=== PATIENT | male | born 1965 | race Caucasian/White ===

== ENCOUNTER 2020-05-09 10:38 | Outpatient (REF) | payer OTHER, SELFPAY | END 2020-05-09 10:39 | disposition home or self-care (01) | LOC: HO.LAB 10:38 | PROVIDERS: PCP Psychiatry & Neurology Psychiatry; Visit Provider Internal Medicine | DX: Z20.822 Contact with and (suspected) exposure to COVID-19 (principal) | CPT/HCPCS: 36415; C9803; U0003; U0005 ==

== ENCOUNTER 2020-05-15 11:59 | Emergency (ER) | payer OTHER, SELFPAY ==
--- NOTE | ~2020-05-15 | XR_ITS ---
EXAMINATION: XR CHEST CLINICAL INFORMATION: Cough COMPARISON: Chest radiographs 11/19/2017, 02/15/2016 TECHNIQUE: AP view of the chest was obtained. FINDINGS: Radiograph is underpenetrated. There is subtle patchy opacities in the bibasilar region, greater on right. Increased attenuation overlying the mid zone is likely related to film technique and overlying soft tissues. There is no confluent lobar segmental airspace consolidation. The cardiac and hilar and mediastinal contours and visualized bony structures are unremarkable. XR/XR chest 1V IMPRESSION: Suspect bibasilar airspace opacities, greater on right. Patient study limitations.
[2020-05-15 12:12] VITALS: BP 108/67; PULSE 84; RESP 18; TEMP 37; O2SAT 96; BMI 48.4
--- NOTE | 2020-05-15 12:45 | ED_ITS ---
HPI - General Adult General Chief complaint: General Medical <AMARA Snow - Last Filed: 05/15/20 14:33> Stated complaint: COUGH <AMARA Snow - Last Filed: 05/15/20 14:33> Time Seen by Provider: 05/15/20 12:17 <AMARA Snow Last Filed: 05/15/20 14:33> Source: patient and family <AMARA Snow - Last Filed: 05/15/20 14:33> Mode of arrival: ambulatory <AMARA Snow - Last Filed: 05/15/20 14:33> Limitations: no limitations <AMARA Snow - Last Filed: 05/15/20 14:33> History of Present Illness HPI narrative: 54 y/o male who was diagnosed with COVID-19 3 days ago presents with worsening cough and body aches. He states he and his have had worsening symptoms all week. He has been using his inhaler with good effect. The coughing is keeping him up at night. It is non-productive. He has no fevers or chills. He has been taking Tylenol for his body aches with little effect. No chest pain, no difficulty breathing or SOB. <AMARA Snow - Last Filed: 05/15/20 14:33> MD complaint: cough, body aches <AMARA Snow - Last Filed: 05/15/20 14:33> Onset (ago): day(s) (3) <AMARA Snow - Last Filed: 05/15/20 14:33> Location: head and chest <AMARA Snow - Last Filed: 05/15/20 14:33> Radiation: non-radiation <AMARA Snow Last Filed: 05/15/20 14:33> Severity: moderate <AMARA Snow Last Filed: 05/15/20 14:33> Quality: aching <AMARA Snow Last Filed: 05/15/20 14:33> Pain Consistency: constant <AMARA Snow Last Filed: 05/15/20 14:33> Relieving factors: medication <AMARA Snow - Last Filed: 05/15/20 14:33> Exacerbating factors: movement <AMARA Snow Last Filed: 05/15/20 14:33> Associated symptoms: cough, fever/chills, headaches, loss of appetite and weakness <AMARA Snow Last Filed: 05/15/20 14:33> Treatments prior to arrival: none <AMARA Snow Last Filed: 05/15/20 14:33> Related Data Home medications: Previous Rx's Medication Instructions Recorded albuterol sulfate 1 inh INHALATION QID PRN #6.7 g 05/15/20 azithromycin [Zithromax Z-Lopez] See Rx Instructions .ROUTE 05/15/20 .COMPLEX #6 tab hydrocodone-homatropine [Hycodan] 5 ml PO Q6H PRN #60 ml 05/15/20 hydrocodone-homatropine [Hycodan] 5 ml PO Q6H PRN #60 ml 05/15/20 prednisone 40 mg PO DAILY #10 tab 05/15/20 <AMARA Snow Last Filed: 05/15/20 14:33> Allergies/adverse reactions: Allergies Allergy/AdvReac Type Severity Reaction Status Date / Time No Known Allergies Allergy Unverified 12/07/19 16:07 <AMARA Snow Last Filed: 05/15/20 14:33> Review of Systems Review of Systems: Constitutional: + Fever, + Chills ENT/Mouth: No sore throat, No Rhinorrhea, No Swallowing Difficulty Cardiovascular: No Chest Pain, No SOB, No Orthopnea, No Edema Respiratory: + Cough, No Sputum, No Wheezing, No dyspnea Gastrointestinal: No Nausea, No Vomiting, No Diarrhea, No abdominal Pain Genitourinary: No Dysuria, No Urinary Frequency, No Hematuria Musculoskeletal: No joint pain, + Myalgias Skin: No Skin Lesions, No rash Neuro: No Dizziness, + Headache Heme/Lymph: No Bruising, No Lymphadenopathy <AMARA Snow Last Filed: 05/15/20 14:33> [facility] Past Medical History Attestation statement: The following information was validated with the patient. <AMARA Snow Last Filed: 05/15/20 14:33> Medical History: Medical History (Updated 05/15/20 @ 12:48 by AMARA Snow) Asthma <AMARA Snow - Last Filed: 05/15/20 14:33> Social History Social History: Social History Alcohol intake: never <AMARA Snow - Last Filed: 05/15/20 14:33> Physical Exam Vital Signs: Vital Signs: Last Vital Signs Temp 98.6 F 05/15/20 12:12 Pulse 84 05/15/20 12:12 Resp 18 05/15/20 12:12 BP 108/67 05/15/20 12:12 Pulse Ox 96 05/15/20 12:12 Body Mass Index 48.4 Appearance: Alert. Oriented X3. No acute distress. Eyes: Pupils equal, round and reactive to light. ENT: Pharynx normal. Neck: Normal inspection. Neck supple. CVS: Normal heart rate and rhythm. Pulses normal. Respiratory: No respiratory distress. Breath sounds normal. Abdomen: Obese, Soft and nontender. +BS x4 Skin: Skin warm and dry. Normal skin color. Normal skin turgor. No rashes. Extremities: No lower extremity edema. Negative Rajesh's sign. Neuro: Oriented X 3. Ambulates with steady gait. <AMARA Snow - Last Filed: 05/15/20 14:33> Vital Signs: Last Vital Signs Temp 98.6 F 05/15/20 12:12 Pulse 84 05/15/20 12:12 Resp 18 05/15/20 12:12 BP 108/67 05/15/20 12:12 Pulse Ox 96 05/15/20 12:12 Body Mass Index 48.4 <Rai Eckert MD - Last Filed: 06/04/20 08:31> Course Course Course Narrative: 54 y/o male presenting with worsening cough and body aches in the setting of known COVID-19. No hypoxia or increased WOB. No SOB or chest pain. His cough makes it hard for him to catch his breath at times. Doubt PE or PNA. He appears well. Will get CXR. <AMARA Snow - Last Filed: 05/15/20 14:33> I have reviewed the chart <Rai Eckert MD - Last Filed: 06/04/20 08:31> Reevaluation(s) Reevaluation #1: CXR with bibasilar infiltrates. He was ambulated on room air and his SPO2 remained 94-95% without SOB or difficultly breathing. Will treat with Z-pack, prednisone, albuterol inhaler and anti-tissive. He was counseled extensively on if symptoms were to worsen he needs to come back to the ER right away. <AMARA Snow - Last Filed: 05/15/20 14:33> Critical Care Time Critical Care Time Critical Care Time: No <AMARA Snow - Last Filed: 05/15/20 14:33> Discharge Plan Discharge Clinical Impression: COVID-19 <AMARA Snow - Last Filed: 05/15/20 14:33> Patient Disposition: Home, Self-Care <AMARA Snow - Last Filed: 05/15/20 14:33> Instructions: COVID-19 (Coronavirus Disease 2019) (ED) <AMARA Snow - Last Filed: 05/15/20 14:33> Additional Instructions: You were found to be COVID-19 POSITIVE today. Your chest x-ray showed some abnormalities due to COVID. Your oxygen levels were normal. Rest. Drink plenty of fluids. Do not go out in public for the next 10 days. Take over the counter cold/flu medications as needed for your symptoms. Take Tylenol and/or Motrin as needed for fevers and body aches. Follow up with your doctor this week. If you shortness of breath worsens, if you develop difficulty breathing or any other concerning symptom come back to the ER for further evaluation. <AMARA Snow - Last Filed: 05/15/20 14:33> Prescriptions: New albuterol sulfate 90 mcg/actuation HFA aerosol inhaler 1 inh inhalation QID PRN (Reason: shortness of breath or wheezing) Qty: 6.7 RF: 0 prednisone 20 mg tablet 40 mg PO DAILY Qty: 10 RF: 0 hydrocodone-homatropine [Hycodan] 5-1.5 mg/5 mL (5 mL) syrup 5 ml PO Q6H PRN (Reason: cough) Qty: 60 RF: 0 azithromycin [Zithromax Z-Lopez] 250 mg tablet See Rx Instructions .ROUTE .COMPLEX Qty: 6 RF: 0 hydrocodone-homatropine [Hycodan] 5-1.5 mg/5 mL (5 mL) syrup 5 ml PO Q6H PRN (Reason: cough) Qty: 60 RF: 0 <AMARA Snow - Last Filed: 05/15/20 14:33> Interventions: ED Discharge Assessment Last Done: 05/15/20 13:26 <AMARA Snow - Last Filed: 05/15/20 14:33> Discharge Date/Time: 05/15/20 13:30 <AMARA Snow - Last Filed: 05/15/20 14:33>
== END 2020-05-15 13:30 | disposition home or self-care (01) ==
PROVIDERS: Emergency Provider Emergency Medicine
DX: U07.1 COVID-19 (principal); R05 Cough; Z79.899 Other long term (current) drug therapy
CPT/HCPCS: 71045; 99284

== ENCOUNTER 2020-05-21 09:56 | Outpatient (REF) | payer OTHER, SELFPAY | END 2020-05-21 09:57 | disposition home or self-care (01) | LOC: HO.LAB 09:56 | PROVIDERS: Visit Provider Internal Medicine | DX: Z20.822 Contact with and (suspected) exposure to COVID-19 (principal) | CPT/HCPCS: 36415; C9803; U0003; U0005 ==

== ENCOUNTER 2023-04-11 21:54 | Emergency (ER) | payer OTHER, SELFPAY ==
[2023-04-11 22:05] VITALS: BP 144/82; PULSE 96; RESP 18; TEMP 36.8; O2SAT 97; BMI 50.7
[2023-04-11 22:36] LABS: IDNOW Serial# 58CA691E; Strep A Nucleic Acid Negative (Negative)
[2023-04-11 22:42] LABS: COVID-19 Test Negative (Negative); IDNOW Serial# 08D9AD1C; IDNOW Serial# 152EDE1D; Influenza A Negative (Negative); Influenza B2 Negative (Negative)
--- NOTE | 2023-04-11 23:55 | ED_ITS ---
HPI - URI/Sore Throat General Chief Complaint: Upper Respiratory Symptoms Stated Complaint: Chest pain, congestion Time Seen by Provider: 04/11/23 23:30 Source: patient Mode of arrival: ambulatory History of Present Illness HPI Narrative: 57-year-old male presents with 2 weeks of coughing and chest pain associated with the coughing episodes and also has underlying asthma and states that he has had persistent shortness of breath but otherwise denies any fevers or chills and denies any non cough associated chest pain or any problems with palpitations, patient does have a follow-up appointment with his primary care doctor. Related Data Previous Rx's Medication Instructions Recorded albuterol sulfate 90 mcg/actuation 1 inh inhalation QID PRN shortness 05/15/20 aerosol inhaler of breath or wheezing #6.7 grams azithromycin 250 mg tablet See Rx Instructions PO .COMPLEX #6 05/15/20 (Zithromax Z-Lopez) tabs hydrocodone-homatropine 5 mg-1.5 5 ml PO Q6H PRN cough #60 mL 05/15/20 mg/5 mL (5 mL) oral syrup (Hycodan) hydrocodone-homatropine 5 mg-1.5 5 ml PO Q6H PRN cough #60 mL 05/15/20 mg/5 mL (5 mL) oral syrup (Hycodan) prednisone 20 mg tablet 40 mg (2 x 20 mg) PO DAILY #10 tabs 05/15/20 benzonatate 200 mg capsule 200 mg PO TID PRN cough #14 caps 04/12/23 prednisone 50 mg tablet 50 mg PO DAILY 4 days #4 tabs 04/12/23 Allergies Allergy/AdvReac Type Severity Reaction Status Date / Time No Known Allergies Allergy Unverified 12/07/19 16:07 Review of Systems Review of Systems: Pertinent positives and negatives as stated in HPI [facility] Past Medical History Source: nursing notes reviewed Onset Date is defined in the Problem List Problems that require an onset date and time if occurred within 24 hrs of arrival to the ED Aortic Dissection and Rupture; Neurologic impairment; Cardiopulmonary Arrest; Endotracheal Intubation; Insertion or Replacement of Mechanical Circulatory Assist Device Medical History Asthma Social History Social History Alcohol intake: never Advance Directives: No Advance Directives Information Provided: Yes Physical Exam Vital Signs: Vital Signs: Last Vital Signs Temp 98.3 F 04/11/23 22:05 Pulse 96 04/11/23 22:05 Resp 18 04/11/23 22:05 BP 144/82 H 04/11/23 22:05 Pulse Ox 97 04/11/23 22:05 O2 Del Method Room Air 04/11/23 22:05 BMI result Body Mass Index 50.7 VITAL SIGNS: Reviewed. GENERAL: Elevated BMI, Well developed, well nourished, in no acute distress. HEAD: Normocephalic/atraumatic EYES: PERRLA, EOMI EARS: Ext canals without abnormality, TMs non-bulging and non-erythematous NOSE: Nares patent bilateral OROPHARYNX: no oral lesions noted, posterior pharynx clear and non-erythematous without noted tonsillar enlargement/erythema/exudates NECK: Supple, no adenopathy LUNGS: Good air entry, no tachypnea, coarse breath sounds noted but otherwise no wheeze/rhonchi/rales. SpO2<97> CARDIOVASCULAR: Regular rate and rhythm without noted murmurs ABDOMEN: Soft, non-tender, non-distended with bowel sounds. MUSCULOSKELETAL: No tenderness, deformities, or effusions noted on gross inspection. EXTREMITIES: No cyanosis, clubbing or edema. SKIN: Inspection of the skin reveals no rashes NEUROLOGIC: Alert and oriented x 4. Strength and sensation to light touch were grossly intact x 4. Medical Decision Making Medical Decision Making [facility] Narrative: 57-year-old male with history and clinical presentation most suggestive of cough associated chest wall discomfort, patient is also likely suffering from viral induced mild asthma symptoms and will treat with albuterol and initiate short course of steroids as well as providing medication for cough control. No concern for pneumonia at this time. I reviewed viral testing which is negative for COVID-19/influenza. Differential Diagnosis Differential Diagnoses: The differential diagnosis associated with the presentation includes Please see the discussion above Admission/Observation Consideration of admission/observation: Escalation of care including admission/observation considered Please see the discussion above Lab Data [facility] Lab Attestation statement: I reviewed the patient's lab results. Please see the discussion above Labs: Lab Results 04/11/23 Range/Units 22:15 COVID-19 (WILD) Negative (Negative) COVID-19 Clin Com See Note Influenza Type A (PATTI) Negative (Negative) Influenza Type B (PATTI) Negative (Negative) Influenza A & B Note See Note S. pyogenes GrpA PATTI Negative (Negative) Discharge Plan Discharge Clinical Impression: Upper respiratory infection, Asthma Patient Disposition: Home, Self-Care Instructions: Asthma (ED), Upper Respiratory Infection (ED) Additional Instructions: 1. Resume all medications as prescribed. 2. Please complete the short course of steroids that you have been prescribed. 3. You have been given a prescription for cough control medication. 4. Please keep the appointment for your primary care provider as scheduled. Return to the ER for any worsening symptoms. Prescriptions: New prednisone 50 mg tablet 50 mg PO DAILY 4 Days Qty: 4 0RF benzonatate 200 mg capsule 200 mg PO TID PRN (Reason: cough) Qty: 14 0RF No Action albuterol sulfate 90 mcg/actuation HFA aerosol inhaler 1 inh inhalation QID PRN (Reason: shortness of breath or wheezing) Qty: 6.7 0RF prednisone 20 mg tablet 40 mg PO DAILY Qty: 10 0RF hydrocodone-homatropine [Hycodan] 5-1.5 mg/5 mL (5 mL) syrup 5 ml PO Q6H PRN (Reason: cough) Qty: 60 0RF azithromycin [Zithromax Z-Lopez] 250 mg tablet See Rx Instructions .ROUTE .COMPLEX Qty: 6 0RF Rx Instructions: take 500 mg today (day 1), then 250 mg for 4 days (days 2-5) hydrocodone-homatropine [Hycodan] 5-1.5 mg/5 mL (5 mL) syrup 5 ml PO Q6H PRN (Reason: cough) Qty: 60 0RF Referrals: Mauri Horowitz MD [Primary Care Provider] -
[2023-04-12] MEDS: Albuterol/Iprat 2.5/0.5MG 3 ML AMPUL.NEB INHALE (00:10)
[2023-04-12 00:12] VITALS: PULSE 88; RESP 16; O2SAT 95
[2023-04-12] MEDS: Benzonatate 100 MG CAPSULE 200 MG PO (00:25)
[2023-04-12] MEDS: predniSONE 10 MG TABLET 50 MG PO (00:25)
== END 2023-04-12 00:35 | disposition home or self-care (01) ==
PROVIDERS: Emergency Provider Student in an Organized Health Care Education/Training Program; PCP Internal Medicine
DX: J06.9 Acute upper respiratory infection, unspecified (principal); J45.909 Unspecified asthma, uncomplicated; R05.9 Cough, unspecified; R06.02 Shortness of breath; Z11.52 Encounter for screening for COVID-19; Z79.899 Other long term (current) drug therapy
CPT/HCPCS: 87502; 87635; 87651; 94640; 99284

== ENCOUNTER 2023-06-30 10:06 | Outpatient (AMB) | payer OTHER, SELFPAY ==
[2023-06-30 10:13] VITALS: BP 120/82; PULSE 79; TEMP 36.8; O2SAT 97; BMI 48.3
--- NOTE | 2023-06-30 10:13 | MHC.OFFWIV ---
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 Pt states the pain started about 4 days ago. Pt states it is hard to hear and the ear pain he states is causing his head to hurt. Patient Tobacco Use Status: Never used Tobacco Allergies No Known Allergies Allergy (Unverified 06/30/23 10:15) HPI HPI Comments History of Present Illness Details 57 y/o male patient who presents to walk in clinic with c/o left ear pain x 4 days PFSH Medical History Asthma Social History Alcohol intake: former Patient Tobacco Use Status: Never used Tobacco Review of Systems Const All systems reviewed & are unremarkable except as noted in HPI and below Physical Exam Vital Signs: Last Vital Signs Temp 98.3 F 06/30/23 10:13 Pulse 79 06/30/23 10:13 BP 120/82 06/30/23 10:13 Pulse Ox 97 06/30/23 10:13 Oxygen Delivery Method Room Air 06/30/23 10:13 BMI result Body Mass Index 48.3 Const General: comfortable and no acute distress Nutritional Appearance: obese Orientation/consciousness: patient oriented x3 HEENT Ears: external ears normal, external ear abnormal auricular tenderness on the left and pain with movement of external ear on the left and TM abnormal erythematous on the left, with fluid behind the TM on the left, obstructed by cerumen on the right and retracted on the left General nose exam: Abnormal mucous membranes and turbinates present pale Face and sinus: Yes sinuses nontender Mouth: moist mucous membranes Throat: Yes posterior oropharynx normal Neuro General: patient oriented x3 Assessment & Plan Assessment & Plan (1) Otitis media: Code(s): H66.90 - Otitis media, unspecified, unspecified ear Qualifiers: Otitis media type: unspecified Chronicity: acute Qualified Code(s): H66.90 - Otitis media, unspecified, unspecified ear Plan: - Use medications a prescribed - Debrox for Wax removal - Acetaminophen for pain relief Medications: New amoxicillin 500 mg PO BID 7 days 14 caps 0RF H66.90 - Otitis media, unspecified, unspecified ear acetaminophen 1,000 mg (2 x 500 mg) PO Q6H PRN 30 caps 0RF pain (scale score 7-10) H66.90 - Otitis media, unspecified, unspecified ear carbamide peroxide 6.5% (Debrox) 5 drps otic (ear) right BID 7 days 15 mL 0RF H61.20 - Impacted cerumen, unspecified ear Coding Level of Care Code Est Pt Level 3 (15738) Diagnoses Acute otitis media, unspecified otitis media type H66.90 Otitis media type: unspecified Chronicity: acute Time Spent (min) 15
== END 2023-06-30 10:44 | disposition home or self-care (01) ==
PROVIDERS: PCP Internal Medicine; Visit Provider Nurse Practitioner Family
DX: H66.90 Otitis media, unspecified, unspecified ear (principal)
CPT/HCPCS: 99213

== ENCOUNTER 2025-02-22 09:37 | Outpatient (AMB) | payer OTHER, SELFPAY ==
[2025-02-22 10:00] VITALS: BMI 45.2
--- NOTE | 2025-02-22 10:00 | A.PHYSOV_ITS ---
Vital Signs 02/22/25 10:00 Height 5 ft 6 in Weight 280 lb BMI 45.2 Intake Visit Reasons: MRI followup High [employer] Required: No Allergies No Known Allergies Allergy (Verified 02/22/25 10:02) HPI Comments Details: History of Present Illness The patient is a 59 year old male presenting for follow-up management of chronic neck and arm pain. He reports constant pain in his arms and neck, rating it a 9 out of 10 in severity. The pain has been causing difficulty sleeping and subsequent exhaustion. A previous shoulder injection provided minimal, temporary relief for only a couple of hours. He also reports that physical therapy made his symptoms worse. His pain is exacerbated by cold and rainy weather. Past diagnostic workup includes a neck MRI which revealed mild degenerative disc disease and some arthritis but no significant nerve impingement. He was also informed by the ER that he has arthritis. His current medications include meloxicam, metformin, and cyclobenzaprine. Patient denies any relief with subacromial injection on 01/09/2025. I ordered MRI of the cervical spine and we are reviewing it in person today. [facility] Medical History Asthma Social History Household Members: Spouse Alcohol intake: current Alcohol intake frequency: does not drink Patient Tobacco Use Status: Never used Tobacco Use of substances other than those prescribed or required for medical reasons: No Current occupational status: unemployed Review of Systems Narrative Review of Systems - Musculoskeletal: Reports constant pain in the arms and neck rated 9/10. - Reports pain with neck movement and full elevation of the right arm. - Reports audible cracking with neck rotation. - Constitutional: Reports feeling exhausted. - Neurological: Reports difficulty sleeping. Physical Exam Exam Exam: Physical Exam Cervical Spine: Examination of the cervical spine, there is no visible swelling or deformity. He is tender to bilateral upper trapezius with palpable spasm. He has limited range of motion of the cervical spine at end range throughout. Special Tests: Axial Compression test: Negative Spurlings test: Negative Lhermitte's sign is Negative Upper Extremities: Full range of motion bilateral upper extremities. He has less pain with Neer testing. Negative empty can test. Full range of motion of his elbow wrist and hand. Equal research program internship strength bilaterally. Neuro: Sensation: Intact to upper extremities bilateral to light touch Strength C5 (Elbow Flexion): 5/5 on the left and 5/5 on the right. C6 (Elbow Ext): 5/5 on the left and 5/5 on the right. C7 (Elbow Ext): 5/5 on the left and 5/5 on the right. C8 (Finger Flex): 5/5 on the left and 5/5 on the right. T1 (Finger Abd/Add): 5/5 on the left and 5/5 on the right. DTR: C5 (Biceps): Left 2 Right 2 C6 (Brachioradialis): Left 1 Right 1 C7 (Triceps): Left 2 Right 2 Cheng sign: Negative No pathologic clonus. No involuntary movement. Vital Signs: BMI result Body Mass Index 45.2 Assessment & Plan Assessment & Plan (1) Cervicalgia: Code(s): M54.2 - Cervicalgia Category: Medical (2) Impingement of right shoulder: Code(s): M25.811 - Other specified joint disorders, right shoulder Category: Medical Plan Plan Patient was informed and verbally consented to the use of an ambient scribe for clinic note documentation during this visit. 1. 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 Previous interventions, including a shoulder injection and physical therapy, have provided minimal to no relief. The lack of significant nerve impingement on MRI makes identifying a specific target for intervention challening. The plan is to initiate gabapentin 100 mg at bedtime to address potential neuropathic pain and improve sleep, with instructions to titrate up to 200 or 300 mg if needed. For daytime pain, the patient may continue meloxicam and can use Tylenol or natural anti-inflammatories such as turmeric. Home care recommendations include using ice for severe pain and heat for stiffness. Further options discussed for future consideration include an MRI of the right shoulder and right-sided cervical facet injections. Discussion Notes I discussed with the patient that his chronic neck and arm pain is complex, as his neck MRI shows mild degenerative changes and arthritis but no definitive target like a pinched nerve. I outlined several management options, including starting gabapentin for nerve pain and sleep, obtaining a right shoulder MRI to rule out shoulder pathology, or pursuing cervical facet injections to target neck arthritis. The patient expressed a desire to first try medication to help with his sleep and exhaustion. I educated him on the starting dose of gabapentin and the plan to titrate up as needed. We also discussed home care, including the appropriate use of ice for severe pain and heat for stiffness. The patient was advised to follow up to adjust his medication and to inform me if he wishes to proceed with imaging or injections. Patient Instructions - Take one gabapentin 100 mg pill at bedtime. - If one pill does not help you sleep or improve pain, you may increase the dose to two or three pills at night. - Please call the office if you find a higher dose of gabapentin is effective, so we can update your prescription. - You can continue to take your other prescribed medications, including meloxicam. - For daytime pain, you may use Tylenol or try an [id number] natural anti- inflammatory supplement like turmeric. - Use ice packs on your neck or shoulder when you have severe pain to help reduce inflammation. - You can use a heating pad for stiffness or tightness, but choose ice for sharp pain. - Contact the office if you decide you would like to proceed with an MRI of your shoulder or injections for your neck. Medications: New gabapentin 100 mg PO BEDTIME 30 caps 0RF M25.811 - Other specified joint disorders, right shoulder, M54.2 - Cervicalgia Coding Level of Care Code Tele Est Pt Level 3 (33912) Diagnoses Cervicalgia M54.2 Impingement of right shoulder M25.811
--- OUTSIDE RECORDS SUMMARY | 2025-02-22 10:58 | XMS_ITS | Clinical Summary ---
Author Organization [facility] [address] [place] [address] Address [address] [place] [address] Phone Care Team Providers Care Plant Breeder Name Role Phone Seng Shi MD Primary Care Provider [phone] Allergies Active Allergy Reactions Criticality Noted Date Comments Other 08/20/2023 Seasonal Allergies Medications albuterol 2.5 mg /3 mL (0.083 %) nebulizer solution Take 1 Vial by nebulization every 4 hours as needed for Wheezing, Shortness of Breath or Cough. 03/23/19 24 Active NON FORMULARY CPAP HISTORICAL (HISTORICAL CPAP) Inhale into the lungs. regional Active lancets (OneTouch Delica Plus Lancet) 30 gauge USE DIRECTED EVERY DAY 08/02/19 24 Active melatonin 5 mg tablet Take 1 Tablet by mouth every evening. 12/02/19 24 Active inhalational spacing device (Aerochamber MV) inhaler Use with albuterol inhaler. 05/17/19 21 Active cyclobenzaprin e (FLEXERIL) 5 mg tablet Take 1 Tablet by mouth 3 times daily as needed. 12/02/19 24 Active albuterol HFA (PROAIR HFA ; PROVENTIL HFA ; VENTOLIN HFA) 90 mcg/actuation inhaler INHALE 2 PUFFS INTO THE LUNGS EVERY 4 HOURS NEEDED FOR COUGH OR WHEEZING 8.5 g 02/29/20 24 Active metFORMIN (GLUCOPHAGE) 500 mg tablet Take 2 tablets by mouth in the morning (with meal) and 1 tablet by mouth in the evening (with meal). 270 tablet 3 04/05/19 25 Active blood-glucose meter kitIndications :Type 2 diabetes mellitus without complication, without long-term current use of insulin ([facility] V24, [facility] V28) Use to check blood sugar three times a day.E11.9 1 each 04/24/19 25 026 Active OneTouch Ultra Test test stripIndicatio ns:Type 2 diabetes mellitus without complication, without long-term current use of insulin ([facility] V24, [facility] V28) USE DIRECTED EVERY DAY 100 strip 5 07/04/19 25 Active budesonide-for moteroL (Breyna) 160-4.5 mcg/actuation inhaler INHALE 2 PUFFS INTO THE LUNGS EVERY 12 HOURS. RINSE WITH WATER& SPIT AFTER USE TO PREVENT ORAL OR ESOPHAGEAL CANDIDAISIS/FUN GAL INFECTION 30.9 g 3 10/24/19 25 Active levothyroxine (SYNTHROID, LEVOTHROID) 137 mcg tablet TAKE 1 TABLET BY MOUTH DAILY AND ON WEDNESDAY TAKE 1 AND 1/2 TABLETS 30 tablet 5 12/29/19 25 Active atorvastatin (LIPITOR) 10 mg tablet TAKE 1 TABLET(10 MG) BY MOUTH 1 TIME EACH DAY AT BEDTIME 90 tablet 1 02/13/20 25 Active semaglutide (Ozempic) 1 mg/dose (4 mg/3 mL) injection pen INJECT 1 MG UNDER THE SKIN EVERY 7 DAYS 3 mL 02/15/20 25 Active semaglutide (OZEMPIC) 1 mg/dose (4 mg/3 mL) injection pen Inject 1 mg under the skin every 7 (seven) days. 3 mL 5 07/19/19 25 025 Discontinued atorvastatin (LIPITOR) 10 mg tablet Take 1 tablet (10 mg total) by mouth 1 (one) time each day. at bedtime. 90 tablet 1 08/30/19 25 025 Discontinued Active Problems Problem Noted Date Diagnosed Date Morbid obesity with BMI of 4 5.0-49.9, adult ([facility] V24, [facility] V28) 02/02/2024 Non-compliance 11/13/2021 Lateral epicondylitis of right elbow 08/05/2021 Type 2 diabetes mellitus ([facility] V24, [facility] V 28) 02/20/2020 Pre-diabetes 10/01/2017 Obstructive sleep apnea 03/30/2017 [facility]02/02/2024[facility]: Date 03/24/2017; Wt 300# SE 78%; SM 79%; REM 17%; RDI 45 (AHI 36), worse in REM (RDI 68 - AHI 66), Central apneas 1; Obstructive apneas 40; Mixed apneas 0; hypopneas 188; RERAs 60; average oxygen saturation 93% (lowest 73% - with saturations <88% for 5% or more of study); PLMs 21. [facility] Polysomnogram treatment study. Date 05/31/2017 . SE 83 % SM 85 %; spent 22 % of the study in REM. At the optimal pressure of CPAP @ 14; RDI 2.4 (AHI 2.4), Central apneas 3; Obstructive apneas 0; Mixed apneas 0; hypopneas 2; RERAs 0; and, average oxygen saturation was 94%. For the entire study, PLMs ~16. - Obstructive Sleep Apnea - severe; mostly hypopneas with obstructive apneas; with sleep related hypoventilation by 2018 diagnostic polysomnogram. Asthma 03/19/2017 Hypertriglyceridemia 03/19/2017 Rectal bleeding 03/19/2017 Overview (02/02/2024): ? Negative colonoscopy. ? Bleeding hemorrhoids Vitamin B 12 deficiency 03/19/2017 Hypothyroidism 12/29/2016 Encounters Date Type Department Care Team Description 01/16/2025 7:35 AM EDT - 01/16/2025 11:59 PM EDT Hospital Encounter [facility] [address] [place] [id number] Radiculopathy Discharge Disposition: Home or Self Care 12/12/2024 3:19 PM EDT - 12/12/2024 11:59 PM EDT Hospital Encounter [address] [phone] Neck pain Discharge Disposition: Home or Self Care 12/12/2024 3:00 PM EDT Office Visit Adult Medicine [address] [phone] Negro, Yesenia M, HEEL [employer]TER Right arm pain (Primary Dx); Acute pain of right shoulder; Neck pain from Last 3 Months Immunizations Immunization Administration Dates Next Due Influenza Quadravalent, MDCK , 0.5ml, with preservative (Flucelvax) 6mo and older 02/10/2017 Moderna SARS-CoV-2 COVID-19, mRNA, LNP-S, preservative free 2020,10/18/2020 Pneumococcal polysaccharide 23 valent (Pneumovax 23) 2yo and older 07/20/2017 Tdap Tetanus diptheria acell ular pertussis (Boostrix; Adacel) 7yo and older 02/10/2017 Medical History Medical History Date Comments Hypothyroidism 12/29/2016 DX:Hypothyroidis m Morbid obesity with BMI of 4 5.0-49.9, adult ([facility] V24, [facility] V28) 02/10/2017 DX:Morbid obesity wit h BMI of 45.0-49.9, adult ([facility]) Asthma 03/19/2017 DX:Asthma Hypertriglyceridemia 03/19/2017 DX:Hypertri glyceridemia Rectal bleeding 03/19/2017 DX:Rectal bleedi ng; COMMENT: ? Negative colonoscopy. ? Bleeding hemorrhoids Vitamin B 12 deficiency 03/19/2017 DX:Vitam in B 12 deficiency Obstructive sleep apnea 03/30/2017 DX:Obstr uctive sleep apnea; COMMENT: [facility] Polysomnogram: Date 03/24/2017; Wt 300# SE 78%; SM 79%; REM 17%; RDI 45 (AHI 36), worse in REM (RDI 68 - AHI 66), Central apneas 1; Obstructive apneas 40; Mixed apneas 0; hypopneas 188; RERAs 60; average oxygen saturation 93% (lowest 73% - with saturations <88% for 5% or more of study); PLMs 21. - Obstructive Sleep Apnea - severe; mostly hypopneas with obs* History of tobacco use 12/30/2016 DX:Histor y of tobacco use; COMMENT: Quit 2015 Pre-diabetes 10/01/2017 DX:Pre-diabetes Family History Medical History Relation Name Comments Obesity Father Hypercholestero lemia Hypertension Mother Relation Name Status Comments Father Mother Social History Tobacco Use Types Packs/Day Years Used Date Smoking Tobacco: Former Cigarettes 0.5 34.6 0 03/22/1982 - 11/14/2016 Smokeless Tobacco: Never Tobacco Cessation:Counseling Given: Not Answered Alcohol Use Standard Drinks/Week Comments No 0 (1 standard drink = 0.6 oz pur e alcohol) Housing Instability Answer Date Recorde d Are you worried that in the next 2 months you may not have stable housing? No 10/23/2024 Food Access & Nutrition Answer Date Rec orded Do you have access to a vari ety of food including fruits and vegetables? Yes 10/23/2024 Access to Healthcare Answer Date Record ed Within the last 3 months, ho w many times did you visit the emergency department for your medical care? 1 10/23/2024 Health Literacy Answer Date Recorded How often do you need to hav e someone help you when you read instructions, pamphlets, or other written material from your doctor or pharmacy? Always 10/23/2024 Caregiver: How often do you need to have someone help you when you read instructions, pamphlets, or other written material from your doctor or pharmacy? Not on file 10/23/2024 Financial Risk Answer Date Recorded How hard is it for you to pa y for the very basics like food, housing, medical care, and air conditioning / heating? Somewhat hard 10/23/2024 Transportation Answer Date Recorded Has the lack of transportati on kept you from meetings, work, or from getting things needed for daily living? No Has the lack of transportati on kept you from medical appointments or from getting medications? No 10/23/2024 Social Isolation Answer Date Recorded How often do you feel lonely or isolated from those around you? Sometimes 10/23/2024 Food Risk Answer Date Recorded Within the past 12 months we worried whether our food would run out before we got money to buy more. Never true 10/23/2024 Within the past 12 months th e food we bought just didn't last and we didn't have money to get more. Never true 10/23/2024 Dependent Care Answer Date Recorded Do you need help finding or paying for care for your loved ones. For example, child nutrition director or elderly care for an older adult? No 10/23/2024 Education Answer Date Recorded Do you think completing more education or training, like finishing a GED, going to college, or learning a trade, would be helpful for you? N/A 10/23/2024 Employment and Income Answer Date Recor ded During the last four weeks, have you been actively looking for work? No 10/23/2024 Living Situation Answer Date Recorded What is your living situation? Unrecognized valu e 10/23/2024 Sex and Gender Information Value Date Recorded Sex Assigned at Not on file Legal Sex Male 5:07 AM EST Gender Identity Not on file Sexual Orientation Not on file Obstetrics History Last Filed Vital Signs Vital Sign Reading Time Taken Comments Blood Pressure 126/78 12/12/2024 2:40 PM EDT Pulse 90 12/12/2024 2:40 PM EDT Temperature 36.8 C (98.2 F) 12/12/2024 2:40 PM EDT Respiratory Rate 20 12/12/2024 2:40 PM EDT Oxygen Saturation 96% 12/12/2024 2:40 PM EDT Inhaled Oxygen Concentration - - Weight 128 kg (281 lb 6.4 oz) 12/12/2024 2:40 PM EDT Height 167.6 cm (5' 6 ) 12/12/2024 2:40 PM EDT Body Mass Index 45.42 12/12/2024 2:40 PM EDT Plan of Treatment Upcoming Encounters Date Type Department Care Team (Late st Contact Info) Description 03/05/2025 2:30 PM EST Office Visit Adult Medicine [address] [phone] Seng Shi MD [address] [place] [address] Health Maintenance Due Date Last Done Comments Hepatitis B Vaccines (1 of 3 - 19+ 3-dose series) 11/14/1986 RSV Immunization Adult Patients (1 - Risk 50-74 years 1-dose series) 11/14/2017 Zoster Vaccines (1 of 2) 11/14/2017 Pneumococcal Vaccine: 50+ Years (2 of 2 - PCV) 07/20/2018 07/20/2017 HIV Screening 02/28/2022 Hepatitis C Screening 02/28/2022 Medicare Annual Wellness Visit 02/28/2022 Diabetes: Annual Retina Eye Exam 07/18/2024 07/19/2023 Diabetes: Annual Foot Exam 08/19/2024 08/20/2023 COVID-19 Vaccine (3 - 5-26 season) 2024 2020, 10/18/2020 Influenza Vaccine (#1) 2024 02/10/2017 Diabetes: Blood Sugar Control Test (HGBA1C) 02/28/2025 08/29/2024, 03/31/2024, 12/02/2023, Additional history exists Colorectal Cancer Screening: Colonoscopy 05/02/2025 05/02/2020 Diabetes: Annual Urine Albumin-Creatinine Ratio (uACR) 08/29/2025 08/29/2024, 12/02/2023 Diabetes: Annual GFR (Glomerular Filtration Rate) 08/29/2025 08/29/2024, 08/20/2023, 08/20/2023 Social Influencers of Health Screening 10/23/2025 10/23/2024 DTaP,Tdap,and Td Vaccines (2 - Td or Tdap) 02/10/2027 02/10/2017 Cholesterol Screening (Lipid Panel) 08/29/2029 08/29/2024, 08/20/2023, 08/20/2023 Depression Screening Completed 10/23/2024 HIB Vaccines Aged Out No longer eligi ble based on patient's age to complete this topic HPV Vaccines Aged Out No longer eligi ble based on patient's age to complete this topic Hepatitis A Vaccines Aged Out No long er eligible based on patient's age to complete this topic IPV Vaccines Aged Out No longer eligi ble based on patient's age to complete this topic MMR Vaccines Aged Out No longer eligi ble based on patient's age to complete this topic Meningococcal ACWY Vaccine Aged Out N o longer eligible based on patient's age to complete this topic Meningococcal B Vaccine Aged Out No l onger eligible based on patient's age to complete this topic RSV Immunization Patients Under 20 months Aged Out No longer eligible based on patient's age to complete this topic Varicella Vaccines Aged Out No longer eligible based on patient's age to complete this topic Procedures Procedure Name Priority Date/Time Associated Diagnosis Comments MR CERVICAL SPINE WO CONTRAST Routine 01/16/2025 8:26 AM EDT Radiculopathy XR CERVICAL SPINE 4-5 VIEWS Routine 12/12/2024 3:30 PM EDT Neck pain MICROALBUMIN CREATININE URINE RATIO Routine 08/29/2024 11:41 AM EDT Type 2 diabetes mellitus without complication, without long-term current use of insulin ([facility] V24, [facility] V28) COMPREHENSIVE METABOLIC PANEL Routine 08/29/2024 11:41 AM EDT Type 2 diabetes mellitus without complication, without long-term current use of insulin ([facility] V24, [facility] V28) Encounter for long-term (current) use of medications HEMOGLOBIN A1C Routine 08/29/2024 11:41 AM EDT Type 2 diabetes mellitus without complication, without long-term current use of insulin ([facility] V24, [facility] V28) LIPID PANEL WITH REFLEX TO DIRECT LDL Routine 08/29/2024 11:41 AM EDT High cholesterol DIABETES FOOT EXAM Routine 08/20/2023 DIABETES EYE EXAM Routine 07/19/2023 COLONOSCOPY Routine 05/02/2020 from Last 3 Months or Most Recently Relevant to Health Maintenance Results * MR Cervical Spine wo Contrast (01/16/2025 8:26 AM EDT) Anatomical Region Laterality Modality C-spine, Spine Magnetic Resonan ce 01/19/2025 9:00 AM EDT Impressions 01/19/2025 12:24 PM EDT Degenerative changes of the cervical spine, most prominent at C6-7. Details above. -------- FINAL REPORT -------- Dictated By: Anatoliy Mccann Dictated Date: 01/19/2025 09:00 ET Assigned Physician: Anatoliy Mccann Reviewed and Electronically Signed By: Anatoliy Mccann Signed Date: 01/19/2025 12:24 ET Workstation ID: [id number] Transcribed By: Self Edit Transcribed Date: 01/19/2025 09:00 ET Narrative 01/19/2025 12:24 PM EDT PROCEDURE: MRI of the cervical spine without intravenous contrast. TECHNIQUE: Sagittal and axial multisequence MRI of the cervical spine without intravenous contrast administration. HISTORY: Radiculopathy COMPARISON: Radiographs dated 12/12/2024. FINDINGS: Visualized portions of the brain and skull base are normal. The paraspinous soft tissues are normal. Straightening of the typical cervical lordosis with slight reversal. No suspicious marrow infiltrative lesion. Evaluation of the cord is limited by motion but there is no appreciable cord signal abnormality. The cord appears normal in caliber. Cervical disc levels: C2-3: No significant disc or facet abnormality. No spinal or foraminal stenosis. C3-4: Minimal anterior endplate osteophytes. No spinal or foraminal stenosis. C4-5: Mild endplate irregularity. Small anterior endplate osteophytes. No spinal or foraminal stenosis. C5-6: Moderate endplate irregularity. Small anterior endplate osteophytes. Small bilateral uncovertebral spurs. No spinal or foraminal stenosis. C6-7: Moderate disc space height loss and endplate irregularity. Small anterior endplate osteophytes. Small bilateral uncovertebral spurs and a small broad-based central protrusion. Mild bilateral foraminal stenosis. The protrusion indents the cord but does not cause significant spinal stenosis. C7-T1: No significant disc or facet abnormality. No spinal or foraminal stenosis. Procedure Note Anatoliy Mccann MD - 01/19/2025 PROCEDURE: MRI of the cervical spine without intravenous contrast. TECHNIQUE: Sagittal and axial multisequence MRI of the cervical spinewithout intravenous contrast administration. HISTORY: Radiculopathy COMPARISON: Radiographs dated 12/12/2024. FINDINGS: Visualized portions of the brain and skull base are normal. The paraspinous soft tissues are normal. Straightening of the typical cervical lordosis with slight reversal. Nosuspicious marrow infiltrative lesion. Evaluation of the cord is limited by motion but there is no appreciablecord signal abnormality. The cord appears normal in caliber. Cervical disc levels: C2-3: No significant disc or facet abnormality. No spinal or foraminalstenosis. C3-4: Minimal anterior endplate osteophytes. No spinal or foraminalstenosis. C4-5: Mild endplate irregularity. Small anterior endplate osteophytes.No spinal or foraminal stenosis. C5-6: Moderate endplate irregularity. Small anterior endplateosteophytes. Small bilateral uncovertebral spurs. No spinal or foraminalstenosis. C6-7: Moderate disc space height loss and endplate irregularity. Smallanterior endplate osteophytes. Small bilateral uncovertebral spurs and asmall broad-based central protrusion. Mild bilateral foraminal stenosis.The protrusion indents the cord but does not cause significant spinalstenosis. C7-T1: No significant disc or facet abnormality. No spinal or foraminalstenosis. IMPRESSION: Degenerative changes of the cervical spine, most prominent at C6-7.Details above. -------- FINAL REPORT -------- Dictated By: Anatoliy Mccann Dictated Date: 01/19/2025 09:00 ET Assigned Physician: Anatoliy Mccann Reviewed and Electronically Signed By: Anatoliy Mccann Signed Date: 01/19/2025 12:24 ET Workstation ID: [id number] Transcribed By: Self Edit Transcribed Date: 01/19/2025 09:00 ET us Lyndon MALONEY IMG MRI PROCEDURES Final Resul t * XR Cervical Spine 4-5 Views (12/12/2024 3:30 PM EDT) Anatomical Region Laterality Modality Spine, C-spine Radiographic Rabia ging 12/12/2024 11:0 1 PM EDT Narrative 12/12/2024 11:03 PM EDT Cervical spine, 4 views. History pain. There is no visible fractures or dislocations. There is narrowing of the disc spaces at C4-5 C5-6 and C6-7 levels more prominent at C6-7 level. There is osteophytic narrowing of the right C6 and C7 neural foramina and left C7 neural foramen. CONCLUSIONS: Degenerative changes as detailed. No fractures or dislocations. -------- FINAL REPORT -------- Dictated By: Nena Parish Dictated Date: 12/12/2024 23:01 ET Assigned Physician: Nena Parish Reviewed and Electronically Signed By: Nena Parish Signed Date: 12/12/2024 23:03 ET Workstation ID: [id number] Transcribed By: Self Edit Transcribed Date: 12/12/2024 23:01 ET Procedure Note Nena Parish MD - 12/12/2024 Cervical spine, 4 views. History pain. There is no visible fractures or dislocations. There is narrowing of thedisc spaces at C4-5 C5-6 and C6-7 levels more prominent at C6-7 level.There is osteophytic narrowing of the right C6 and C7 neural foramina andleft C7 neural foramen. CONCLUSIONS: Degenerative changes as detailed. No fractures ordislocations. -------- FINAL REPORT -------- Dictated By: Nena Parish Dictated Date: 12/12/2024 23:01 ET Assigned Physician: Nena Parish Reviewed and Electronically Signed By: Nena Parish Signed Date: 12/12/2024 23:03 ET Workstation ID: [id number] Transcribed By: Self Edit Transcribed Date: 12/12/2024 23:01 ET us Yesenia Tom [employer] IMG XR PROCEDURES Final Resul t * (ABNORMAL) Lipid panel with reflex to direct LDL (08/29/2024 11:41 AM EDT) Cholesterol 131 0 - 200 mg/dL LAB CHEMISTRY METHOD 08/29/2024 5:18 PM EDT [facility] Triglycerides 288(H) 0 - 150 mg/dL LAB CHEMISTRY METHOD 08/29/2024 5:18 PM EDT [facility] HDL 37(L) >=40 mg/dL LAB CHEMISTRY METHOD 08/29/2024 5:18 PM EDT [facility] LDL Calculated 36 0 - 100 mg/dL LAB CHEMISTRY METHOD 08/29/2024 5:18 PM EDT [facility] VLDL Cholesterol Santo 57.6 mg/dL LAB CHEMISTRY METHOD 08/29/2024 5:18 PM EDT [facility] Non HDL Chol. (LDL+VLDL) 94 <145 mg/dL LAB CHEMISTRY METHOD 08/29/2024 5:18 PM EDT [facility] Chol/HDL Ratio 3.5 0.0 - 4.4 LAB CHEMISTRY METHOD 08/29/2024 5:18 PM EDT [facility] Blood Venous blood specimen / Unknown Venipuncture / Unknown 08/29/2024 11:41 AM EDT 08/29/2024 11:41 AM EDT us Seng Shi MD LAB BLOOD ORDERABLES Final Resu lt [facility] [address] [place] [address], [place] [phone] * Microalbumin creatinine urine ratio (08/29/2024 11:41 AM EDT) Creatinine, Urine 161.0 mg/dL LAB CHEMISTRY METHOD 08/29/2024 6:27 PM EDT [facility] Microalb, Ur 10.5 0.0 - 29.0 mg/L LAB CHEMISTRY METHOD 08/29/2024 6:27 PM EDT [facility] Microalb/Creat Ratio 7 <30 mg/g creat LAB CHEMISTRY METHOD 08/29/2024 6:27 PM EDT [facility] Urine Urine specimen obtained by clean catch procedure / Unknown Non-blood Collection / Unknown 08/29/2024 11:41 AM EDT 08/29/2024 11:41 AM EDT us Seng Shi MD LAB URINE ORDERABLES Final Resu lt Performing Organization Address [facility]/ZIP Co de Phone Number [facility] [address] [place] [address], [place] [phone] * Hemoglobin A1c (08/29/2024 11:41 AM EDT) Hemoglobin A1C 6.3 <6.5 % LAB CHEMISTRY METHOD 08/29/2024 10:12 PM EDT [facility] Mean Bld Glu Estim. 134 mg/dL LAB CHEMISTRY METHOD 08/29/2024 10:12 PM [facility] Blood Venous blood specimen / Unknown Venipuncture / Unknown 08/29/2024 11:41 AM EDT 08/29/2024 11:41 AM EDT us Seng Shi MD LAB BLOOD ORDERABLES Final Resu lt [facility] [address] [place] [address], * Comprehensive metabolic panel (08/29/2024 11:41 AM EDT) [facility] Sodium 143 133 - 145 mmol/L LAB CHEMISTRY METHOD 08/29/2024 5:18 PM [facility] Potassium 4.0 3.5 - 5.5 mmol/L LAB CHEMISTRY METHOD 08/29/2024 5:18 PM [facility] Chloride 109 96 - 110 mmol/L LAB CHEMISTRY METHOD 08/29/2024 5:18 PM [facility] CO2 28 21 - 32 mmol/L LAB CHEMISTRY METHOD 08/29/2024 5:18 PM [facility] Anion Gap 6 3 - 11 LAB CHEMISTRY METHOD 08/29/2024 5:18 PM [facility] Glucose 86 70 - 100 mg/dL LAB CHEMISTRY METHOD 08/29/2024 5:18 PM [facility] BUN 10 5 - 25 mg/dL LAB CHEMISTRY METHOD 08/29/2024 5:18 PM [facility] Creatinine 0.88 0.70 - 1.30 mg/dL LAB CHEMISTRY METHOD 08/29/2024 5:18 PM [facility] eGFR 101 >=60 mL/min/1. 73m2 LAB CHEMISTRY METHOD 08/29/2024 5:18 PM [facility] Comment:Calculation based on the Chronic Kidney Disease Epidemiology Collaboration (CKD-EPI) equation refit without adjustment for race. BUN/Creatinine Ratio 11.4 LAB CHEMISTRY METHOD 08/29/2024 5:18 PM [facility] Calcium 9.0 8.5 - 10.5 mg/dL LAB CHEMISTRY METHOD 08/29/2024 5:18 PM [facility] AST (SGOT) 14 10 - 42 unit/L LAB CHEMISTRY METHOD 08/29/2024 5:18 PM [facility] ALT (SGPT) 20 10 - 60 unit/L LAB CHEMISTRY METHOD 08/29/2024 5:18 PM [facility] Alkaline Phosphatase 99 42 - 121 unit/L LAB CHEMISTRY METHOD 08/29/2024 5:18 PM [facility] Total Protein 7.3 6.0 - 8.0 g/dL LAB CHEMISTRY METHOD 08/29/2024 5:18 PM [facility] Albumin 4.0 3.2 - 5.0 g/dL LAB CHEMISTRY METHOD 08/29/2024 5:18 PM [facility] Total Bilirubin 0.3 0.0 - 1.4 mg/dL LAB CHEMISTRY METHOD 08/29/2024 5:18 PM [facility] Blood Venous blood specimen / Unknown Venipuncture / Unknown 08/29/2024 11:41 AM EDT 08/29/2024 11:41 AM EDT us Seng Shi MD LAB BLOOD ORDERABLES Final Resu lt [facility] [address] [place] [address], * Diabetes Foot Exam (08/20/2023) Diabetes: Annual Foot Exam Abstracted Historical Provider HEALTH MAINTENANCE Final Result * Diabetes Eye Exam (07/19/2023) Pathologist [facility] Diabetes: Annual Retina Eye Exam Abstracted Historical Provider HEALTH MAINTENANCE Final Result * Colonoscopy (05/02/2020) Pathologist [facility] Colonoscopy No Interpretation , Abstracted Anatomical Region Laterality Modality Other Historical Provider HEALTH MAINTENANCE Final Result from Last 3 Months or Most Recently Relevant to Health Maintenance Insurance [employer] MEDICARE Member Subscriber Plan / Payer (Ef fective 2022-Present) Name:JEWEL PRASAD Relation to Subscriber:Self Name:Jewel Prasad Payer ID:[id number] Group ID:[id number] Type:Not on file Address: [address] [facility] [place] [id number] Care Teams Plant [employer] Relationship Specialty Start Date End Date Seng Shi MD [address] [place] [id number] PCP - General Internal Medicine 05/21/21
== END 2025-02-22 10:25 | disposition home or self-care (01) ==
LOC: HO.HPHYS 09:37
PROVIDERS: PCP Internal Medicine; Visit Provider Physician Assistant
DX: M54.2 Cervicalgia (principal); M25.811 Other specified joint disorders, right shoulder
CPT/HCPCS: 99213

== ENCOUNTER → 2025-02-22 09:37 | Outpatient (BNVA) | payer OTHER, SELFPAY | PROVIDERS: PCP Internal Medicine; Visit Provider Physician Assistant | DX: M54.2 Cervicalgia (principal); M25.811 Other specified joint disorders, right shoulder; G89.29 Other chronic pain; Z79.899 Other long term (current) drug therapy | CPT/HCPCS: 99212 ==